=== PATIENT | female | born 1985 | race Two or more races ===

== ENCOUNTER 2025-06-12 07:33 | Emergency (ER) | payer MEDICAID, SELFPAY ==
[2025-06-12 07:48] VITALS: BP 146/89; PULSE 91; RESP 18; TEMP 37.1; O2SAT 99
[2025-06-12 07:51] VITALS: BMI 28.3
--- NOTE | 2025-06-12 07:51 | XR_ITS ---
Examination: CT abdomen and pelvis without contrast. Coronal 3-D reconstructions. Sagittal 2-D reconstructions. Date and time of exam:25, 0959 hrs. Indications: Left flank pain beginning last night, history appendectomy CTDI: vol (mGy): 8.86. DLP: (mGycm): 456. Technique: Axial images of the abdomen have been obtained, 3 mm slice thickness Intravenous contrast material has not been administered. Low dose protocols were performed. One or more of the following dose reduction techniques were used; automated exposure control, adjustment of the mA and/or KV according to patient size, use of iterative reconstruction technique. Findings: Prominent fatty infiltration throughout the liver No gallstones No pancreatic or adrenal mass. Tiny 1 to 2 mm left renal calculi Mild left hydronephrosis secondary to 2 mm distal left ureterovesical junction calculus. Appendix is not visualized No bowel obstruction No pelvic mass Contracted urinary bladder Mild distention posteriorly L5-S1. Impression: Mild left hydronephrosis secondary to 2 mm distal left ureterovesical junction calculus
--- NOTE | 2025-06-12 07:51 | EDNOTE_ITS ---
<Statement entered by Elsy Valencia MD - 06/27/25 06:34> As co-signing physician, I was present and available for consult prn. I concur with the plan and care as documented by the midlevel provider. ED Abdominal Pain RME/HPI General Chief Complaint: General Adult/Misc Complain Stated complaint: L) SIDE PAIN Time seen by provider: 06/12/25 07:49 Arrival date/time: 06/12/25 07:33 40-year-old female with no known medical history presents to the emergency room with a chief complaint of left lower abdominal and left-sided flank pain since 3 AM this morning Source: patient Mode of arrival: ambulatory Limitations: no limitations Related Data Home Medications ?Medication ?Instructions ?Recorded ?Confirmed Vitamin * 1 tab PO QDAY #0 tabs Previous Rx's ?Medication ?Instructions ?Recorded hydrocodone 5 mg-acetaminophen 325 1 tab PO BID PRN pa in #10 tabs 06/12/25 mg tablet tamsulosin 0.4 mg capsule (Flomax) 0.4 mg PO QDAY #30 caps 06/12/25 Allergies Allergy/AdvReac Type Severity Reaction Status Date / Time No Known Allergies Allergy Unknown Verified 06/12/25 07:36 Review of Systems Review of Systems Systems Reviewed: All systems reviewed, normal except as documented Constitutional Constitutional: Reports system reviewed and no additional complaints, except as documented, Denies fatigue, Denies fever(s), Denies headache(s) and Denies weakness Eyes Eyes: Reports system reviewed and no additional complaints, except as documented, Denies blurry vision and Denies change in vision ENT Ears, Nose, Mouth, and Throat: Reports system reviewed and no additional complaints, except as documented, Denies otalgia, Denies headache(s), Denies nasal congestion, Denies throat swelling and Denies vertigo Cardiovascular Cardiovascular: Reports system reviewed and no additional complaints, except as documented, Denies chest pain, Denies dyspnea and Denies dyspnea on exertion Respiratory Respiratory: Reports system reviewed and no additional complaints, except as documented, Denies chest congestion, Denies cough, Denies dyspnea, Denies dyspnea on exertion and Denies wheezing Gastrointestinal Gastrointestinal: Reports system reviewed and no additional complaints, except as documented, Reports abdominal pain, Reports cramping, Reports nausea and Reports vomiting Genitourinary Genitourinary: Reports system reviewed and no additional complaints, except as documented Musculoskeletal Musculoskeletal: Reports system reviewed and no additional complaints, except as documented and Denies back pain Integumentary/Breasts Skin/Breast: Reports system reviewed and no additional complaints, except as documented and Denies wounds Neurologic Neurologic: Reports system reviewed and no additional complaints, except as documented, Denies confusion, Denies headache(s), Denies lack of coordination, Denies vertigo and Denies weakness Psychiatric Psychiatric: Reports system reviewed and no additional complaints, except as documented, Denies anxiety, Denies confusion, Denies depression, Denies paranoia, Denies suicidal ideation and Denies tactile hallucinations Endocrine Endocrine: Reports system reviewed and no additional complaints, except as documented and Denies fatigue Hematologic/Lymphatic Hematologic/Lymphatic: Reports system reviewed and no additional complaints, except as documented and Denies lymphadenopathy Allergic/Immunologic Allergic/Immunologic: Reports system reviewed and no additional complaints, except as documented, Denies throat swelling, Denies urticaria and Denies wheezing Past Medical History Past Medical History CARDIAC: Negative Congestive Heart Failure RESPIRATORY: Negative Chronic Obstructive Pulmonary Disease (COPD) GENITOURINARY: Negative Renal Disease ENDOCRINE: Negative Diabetes Mellitus Type 1 or Diabetes Mellitus Type 2 OTHER HISTORY: Negative Blood Transfusions Family History FAMILY HISTORY: Negative Family Cardiac Disorders Social History SMOKING STATUS: Never smoker SUBSTANCE USE: does not use ED Exam General Limitations: Present no limitations General appearance: Present alert and in no apparent distress Head Head exam: Present atraumatic Eye Eye exam: Present normal appearance, PERRL and EOMI ENT ENT exam: Present normal exam, normal oropharynx and mucous membranes moist Neck Neck exam: Present normal inspection, full ROM and trachea midline Chest Chest inspection: Present normal inspection and symmetric chest wall rise Respiratory Respiratory exam: Present normal lung sounds bilaterally Cardiovascular Cardiovascular exam: Present regular rate, normal rhythm and normal heart sounds Abdominal Exam Abdominal exam: Present soft, tenderness and normal bowel sounds; Absent Valero's sign or tenderness at McBurney's Point Abdominal tenderness: Present LLQ, suprapubic and mild; Absent RUQ, RLQ or LUQ Extremities Exam Extremities exam: Present normal inspection and full ROM Back Exam Back exam: Present normal inspection and full ROM Neurological Exam Neurological exam: Present alert, oriented X3 and CN II-XII intact Psychiatric Psychiatric exam: Present normal affect and normal mood Skin Skin exam: Present warm, dry, intact and normal color Course Quality Measures none Orders Category Date Time Status CT abdomen pelvis wo con Stat Exams 06/12/25 07:51 Completed CBC Stat Lab 06/12/25 08:05 Completed CMP [Comprehensive Metabolic Panel] Stat Lab 06/12/25 08:05 Completed HCG Qualitative,Urine Stat Lab 06/12/25 08:35 Completed Lipase Stat Lab 06/12/25 08:05 Completed UA [Urinalysis] Stat Lab 06/12/25 08:35 Completed Urine Culture Stat Lab 06/12/25 08:35 Received HYDROcodone*/APAP 5/325 [[place] 5/325] Med 06/12/25 07:51 Discontinued 1 tab PO X1 ONE Ketorolac Inj [Toradol Inj] Med 06/12/25 09:57 Discontinued 30 mg IM X1 ONE Ondansetron Odt [Zofran Odt] Med 06/12/25 07:51 Discontinued 4 mg PO X1 ONE Vital Signs Vital signs: Vital Signs Temperature 98.8 F 06/12/25 07:48 Pulse Rate 91 06/12/25 07:48 Respiratory Rate 18 06/12/25 07:48 Blood Pressure 146/89 H 06/12/25 07:48 Pulse Oximetry (%) 99 06/12/25 07:48 Oxygen Delivery Method Room Air 06/12/25 07:48 Abdominal Pain MDM MDM Narrative MDM Narrative:: 40-year-old female with no known medical history presents to the emergency room with a chief complaint of left lower abdominal and left-sided flank pain since 3 AM this morning Patient is hemodynamically stable and in no apparent distress. Patient is afebrile not tachycardic not tachypneic Physical examination shows left lower quadrant abdominal pain with palpation. There is no right lower quadrant right upper quadrant. The patient also has left-sided CVA tenderness CT of the abdomen and pelvis was completed and found a 2 mm distal left ureteral junction calculus. Patient was given Toradol with significant improvement to the symptoms Urinalysis was within normal limits. CBC CMP showed some leukocytosis but the patient has been vomiting. Patient was discharged with pain medications and Flomax and educated to increase her fluid intake Patient was discharged and educated to follow-up with primary care provider in the next 24 to 48 hours and return to the emergency room for any evidence of worsening signs or symptoms Patient data External records reviewed:: [facility] previous records Clinical information provided by:: patient Social determinants that could affect healthcare access:: none Patient has the following chronic illnesses:: No chronic illness How is presenting disease/condition affected by chronic disease/condition?: no chronic disease Evaluation data The following diagnostics were reviewed and interpreted by me:: lab results and radiology exam(s) Lab and/or radiology exams considered but not ordered:: Labs and radiology exams considered and ordered Interpretation Summary: CT abdomen and pelvis-Findings: Prominent fatty infiltration throughout the liver No gallstones No pancreatic or adrenal mass. Tiny 1 to 2 mm left renal calculi Mild left hydronephrosis secondary to 2 mm distal left ureterovesical junction calculus. Appendix is not visualized No bowel obstruction No pelvic mass Contracted urinary bladder Mild distention posteriorly L5-S1. Impression: Mild left hydronephrosis secondary to 2 mm distal left ureterovesical junction calculus Medications / Prescriptions Medications or Prescriptions considered but not ordered:: Medication given Medication administrations:: Medication Administration History Discontinued Medications Hydrocodone Bitart/Acetaminophen (Hydrocodone/Apap 5/325 Tablet) 1 tab PO X1 ONE Stop: 06/12/25 07:52 Last Admin: 06/12/25 08:07 Dose: 1 tab Documented By: NANI Ketorolac Tromethamine (Ketorolac Inj 60 Mg/2 Ml Vial) 30 mg IM X1 ONE Stop: 06/12/25 09:58 Ondansetron HCl (Ondansetron Odt 4 Mg Tabrap) 4 mg PO X1 ONE; Protocol Stop: 06/12/25 07:52 Last Admin: 06/12/25 08:07 Dose: 4 mg Documented By: NANI Medication given Consultations Consultation(s) initiated? (list below): No Diagnosis Differential diagnosis abdominal pain: abdominal pain, calculus of kidney, constipation, diverticulitis, gastroenteritis and other (Urinary tract infection /ureteral calculi) Most likely diagnosis given after review of the tests above:: Ureteral calculi Admission Indicated Admission indicated?: not indicated Admission Request Was there a request for admission?: No Disposition Plan Disposition Plan: Discharge Discharge Attestation Discharge Attestation: The patient and all family members were given an opportunity to ask questions and understood the discharge instructions. Discharge instructions specifically effects, indications for sooner follow up or return to the emergency department, and the expected course of current diagnosis. Patient condition: Stable Discharge Plan Plan Patient Disposition: HOME (Self Care) Discharge Disposition comment: Stable Prescriptions/Referrals Prescriptions/Med Rec: New tamsulosin [Flomax] 0.4 mg capsule 0.4 mg PO QDAY Qty: 30 0RF hydrocodone-acetaminophen 5-325 mg tablet 1 tab PO BID MDD 10mg PRN (Reason: pain) Qty: 10 0RF No Action Vitamin * 1 EACH tablet 1 tab PO QDAY Qty: 0 Referrals: Jose Juarez MD [Primary Care Provider] - In 1 week Problem List Clinical Impression: Calculus, ureteral Patient/Caregiver Discharge Instructions Education Materials: ED Kidney Stone w/ Colic Additional Instructions: Please follow-up with your primary care provider in the next 24 to 48 hours Medication was sent to your pharmacy to help you pass your kidney stone. Please increase your fluid intake. For any evidence of worsening signs or symptoms return to the emergency room immediately Print Language: Japanese Stand Alone Forms: Sonia Award Info., Patient Portal Info Letter PA/CHEMISTRY PHYSICS TEACHER Supervising Physician PA/CHEMISTRY PHYSICS TEACHER Supervising Physician: Dr. VALENCIA
[2025-06-12] MEDS: ONDANSETRON ODT 4 MG TABRAP PO (08:07)
[2025-06-12] MEDS: HYDROcodone/APAP 5/325 TABLET 1 TAB PO (08:07)
[2025-06-12 08:41] LABS: Alanine Aminotransferase 29 U/L (10-49); Albumin, Serum 4.5 gm/dL (3.5-5.0); Albumin/Globulin Ratio 1.8 (1.2-2.2); Alkaline Phosphatase 66 U/L (46-116); Anion Gap 12 (7-16); Aspartate Amino Transferase 24 U/L (0-34); BUN/Creatinine Ratio 16 Ratio (12-20); Bilirubin,Total 0.9 mg/dL (0.3-1.2); Blood Urea Nitrogen 14 mg/dL (9-23); Calcium 9.9 mg/dL (8.3-10.6); Calcium (Corrected) 9.9 mg/dL (8.5-10.1); Carbon Dioxide 24.5 mMol/L (20.0-31.0); Chloride 106 mMol/L (98-107); Creatinine (Component) 0.9 mg/dL (0.6-1.3); Estimated Creatinine Clearance 84.0 mL/min (>60); Globulin 2.5 gm/dL (2.3-3.5); Glucose 176 mg/dL (74-106); Lipase 28 U/L (12-53); Osmolality,Calculated 287 (275-295); Potassium 3.8 mMol/L (3.4-5.1); Sodium 142 mMol/L (136-145); Total Protein 7.0 gm/dL (5.7-8.2); eGFR > 60 See Note
[2025-06-12 08:48] LABS: Collection Type, Urine Clean Catch
[2025-06-12 08:54] LABS: Basophils # (Auto) 0.1 Thou/mm3 (0.0-0.2); Basophils % (Auto) 0 % (0-2.5); Eosinophils # (Auto) 0.0 Thou/mm3 (0.0-0.5); Eosinophils % (Auto) 0 % (0-10); Hematocrit 39.2 % (36.0-46.0); Hemoglobin 13.6 g/dL (12.0-16.0); Immature Granulocytes Auto 0.10 Thou/mm3 (0.00-0.00); Lymphocytes # (Auto) 2.2 Thou/mm3 (1.0-4.8); Lymphocytes % (Auto) 13 % (10-50); Mean Corpuscular HGB Conc 34.7 g/dl (31.0-37.0); Mean Corpuscular Hemoglobin 30.6 pg (25.0-35.0); Mean Corpuscular Volume 88 fL (80-100); Monocytes # (Auto) 0.7 Thou/mm3 (0.0-0.8); Monocytes % (Auto) 4 % (0-12); Neutrophils # (Auto) 14.8 Thou/mm3 (1.8-7.7); Neutrophils % (Auto) 83 % (37-80); Nucleated Red Blood Cell # 0.00 Thou/mm3 (0.00-0.00); Nucleated Red Blood Cell % 0 /100 WBC (0); Platelet Count 312 Thou/mm3 (140-440); RDW Standard Deviation 39.5 fL (36.4-46.3); Red Blood Count 4.44 Miln/mm3 (4.00-5.20); White Blood Count 17.9 Thou/mm3 (3.6-11.0)
[2025-06-12 09:09] LABS: HCG Qualitative,Urine Negative
[2025-06-12 09:11] LABS: Amorphous Crystals,Urine Present (Absent); Bilirubin,Urine Negative (Negative); Blood,Urine 3+ (Negative); Color,Urine Yellow (Lt Yel-Yel); Glucose, Urine Trace (Negative); Ketones,Urine Negative (Negative); Leukocyte Esterase,Urine Negative (Negative); Nitrite,Urine Negative (Negative); PH,Urine 5.5 (5.0-7.0); Protein,Urine Trace (Neg - Trace); RBC,Urine 95 /hpf (0-3); Specific Gravity,Urine 1.037 (1.001-1.035); Squamous Epithelial Cell,Urine 2 /hpf (0-5); Urobilinogen,Urine Negative mg/dL (0.0-1.0); WBC,Urine < 1 /hpf (0-5)
[2025-06-12 09:12] LABS: Clarity,Urine Turbid (Clear/Hazy)
[2025-06-12] MEDS: KETOROLAC INJ 60 MG/2 ML VIAL 30 MG IM (12:00)
== END 2025-06-12 12:07 | disposition home or self-care (01) ==
PROVIDERS: Nurse Practitioner Family; Emergency Provider Emergency Medicine; PCP Family Medicine
DX: N13.2 Hydronephrosis with renal and ureteral calculous obstruction (principal); D72.829 Elevated white blood cell count, unspecified
CPT/HCPCS: 36415; 74176; 80053; 81001; 81025; 83690; 85025; 87086; 96372; 99283; J1885; Q0162; A9270